=== PATIENT | male | born 1975 | race Caucasian/White ===

== ENCOUNTER 2021-06-30 05:56 | Emergency (ER) | payer OTHER ==
[2021-06-30 06:51] VITALS: BP 149/92; PULSE 83; TEMP 97.6; BMI 27.3
[2021-06-30] MEDS ORDERED: ONDANSETRON 4 MG/2 ML VIAL IVPUSH ONE (07:52)
[2021-06-30] MEDS ORDERED: SODIUM CHLORIDE 1,000 ML IV STA (07:52)
[2021-06-30] MEDS ORDERED: ACETAMINOPHEN 1000 MG/100 ML VIAL (NON FORMULARY) IVPB ONE (07:52)
[2021-06-30] MEDS ORDERED: MAG HYDROX/AL HYDROX/SIMETH -MYLANTA- ORAL SUSPENSION PO ONE (07:52)
[2021-06-30] MEDS ORDERED: FAMOTIDINE 20 MG TABLET PO ONE (07:52)
[2021-06-30] MEDS ORDERED: ONDANSETRON 4 MG/2 ML VIAL ONE (08:48)
[2021-06-30] MEDS ORDERED: MAG HYDROX/AL HYDROX/SIMETH 30 ML UNIT-DOSE CUP ONE (08:48)
[2021-06-30] MEDS ORDERED: ACETAMINOPHEN INJECTION 100 ML IVPB ONE (08:48)
[2021-06-30] MEDS ORDERED: FAMOTIDINE 20 MG TABLET ONE (08:48)
[2021-06-30 09:38] LABS: BASO % 0.2 % (0-2.0); EOS % 1.5 % (0-4.5); HEMOGLOBIN 16.5 GM/dL (11.7-16.9); MCH 32.3 pg (25.7-33.7); MCHC 35.1 g/dl (32.0-35.9); MEAN CELL VOLUME 91.9 fl (80-96); MEAN PLT VOLUME 8.6 fl (7.5-11.1); MONO % 5.4 % (3.8-10.2); NEUT % 86.9 % (42.8-82.8); PLATELET COUNT 259 10^3/uL (134-434); RBC 5.11 M/mm3 (4.00-5.60); RDW 13.8 % (11.9-15.9); WHITE BLOOD COUNT 11.9 K/mm3 (4.0-10.0)
[2021-06-30 09:57] LABS: ALBUMIN 4.1 g/dl (3.4-5.0); BLOOD UREA NITROGEN 13.2 mg/dL (7-18)
[2021-06-30 10:00] LABS: CREATININE 0.9 mg/dL (0.55-1.3)
[2021-06-30 10:02] LABS: TOT PROT 7.4 g/dl (6.4-8.2)
[2021-06-30 10:12] LABS: BILIRUBIN,TOTAL 0.8 mg/dL (0.2-1)
[2021-06-30] MEDS ORDERED: KETOROLAC TROMETHAMINE 30 MG/1 ML VIAL IVPUSH ONE (11:01)
[2021-06-30] MEDS ORDERED: KETOROLAC TROMETHAMINE 30 MG/1 ML VIAL ONE (11:17)
== END 2021-06-30 11:23 | disposition home or self-care (01) ==
LOC: JER 05:56
PROC: 3E0333Z Introduction of Anti-inflammatory into Peripheral Vein, Percutaneous Approach (ICD-10-PCS; principal; 2021-06-30)
PROC: 3E0333Z Introduction of Anti-inflammatory into Peripheral Vein, Percutaneous Approach (ICD-10-PCS; 2021-06-30)
PROC: 3E033GC Introduction of Other Therapeutic Substance into Peripheral Vein, Percutaneous Approach (ICD-10-PCS; 2021-06-30)
PROC: 3E0337Z Introduction of Electrolytic and Water Balance Substance into Peripheral Vein, Percutaneous Approach (ICD-10-PCS; 2021-06-30)
DX: R10.13 Epigastric pain (principal)
CPT/HCPCS: 36415; 80053; 83690; 85025; 99284-25; J0131